=== PATIENT | female | born 2000 | race African-American/Black ===

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

== ENCOUNTER 2020-09-13 09:09 | Emergency (ER) | payer MEDICAID ==
[~2020-09-13] VITALS: Ht 160 cm; Wt 60.0 kg
[2020-09-13] MEDS ORDERED: DIPHENHYDRAMINE 50 MG/ML, 1ML ONE (09:52)
[2020-09-13] MEDS ORDERED: MORPHINE SULFATE 4 MG/ML, 1ML ONE (09:52)
[2020-09-13] MEDS ORDERED: METOCLOPRAMIDE 5 MG/ML, 2ML ONE (09:52)
[2020-09-13] MEDS ORDERED: PLEASE ENTER HEIGHT AND WEIGHT MC SCH (10:00)
[2020-09-13] MEDS ORDERED: DIPHENHYDRAMINE 50 MG/ML, 1ML IVPush ONE (10:00)
[2020-09-13] MEDS ORDERED: METOCLOPRAMIDE 5 MG/ML, 2ML IVPush ONE (10:00)
[2020-09-13] MEDS ORDERED: MORPHINE SULFATE 4 MG/ML, 1ML IVPush PRN (10:00)
--- NOTE | 2020-09-13 10:13 | NUR ---
PT CAME IN CO OF RUQ ABD PAIN X 2-3 DAYS. WAS SEEN AT [facility] FOR SAME. "THEY GAVE ME ZOFRAN WHICH HELPED BUT THE PAIN IS BACK". PT ADMITS TO SMOKING [place]IJUA[place]. PT RESITNG IN [facility]. LABS DRAWN. MEDICATED PER DEC. PT REPORTS PAIN IMPROVEMENT. WARM BLANKETS PROVIDED.
[2020-09-13 10:22] LABS: BASOPHILS % (AUTO) 1 % (0-1); EOSINOPHILS % (AUTO) 0 % (1-7); LYMPHOCYTES % (AUTO) 20 % (22-44); MEAN CORPUSCULAR HEMOGLOBIN 28.5 pg (27.0-34.8); MEAN CORPUSCULAR HGB CONC 33.2 g/dL (32.4-35.8); MEAN PLATELET VOLUME 10.2 fL (7.4-10.4); MONOCYTES % (AUTO) 4 % (2-9); NEUTROPHILS % (AUTO) 75 % (42-75); PLATELET COUNT 169 x10^3/uL (130-400); RED BLOOD COUNT 5.03 x10^6/uL (3.82-5.3); RED CELL DISTRIBUTION WIDTH 13.1 % (9.6-15.2)
[2020-09-13 10:23] LABS: MD NO
[2020-09-13 10:31] LABS: ALANINE AMINOTRANSFERASE 32 U/L (12-78); ALBUMIN 4.6 g/dL (3.4-5.0); ANION GAP 12 mmol/L (5-15); CALCIUM 9.8 mg/dL (8.5-10.1); CHLORIDE 109 mmol/L (98-107); CREATININE 1.17 mg/dL (0.55-1.02)
[2020-09-13 10:36] LABS: ALKALINE PHOSPHATASE 64 U/L (45-117); BILIRUBIN,TOTAL 0.4 mg/dL (0.2-1.0); TOTAL PROTEIN 8.8 g/dL (6.4-8.2)
--- NOTE | 2020-09-13 11:16 | NUR ---
PT RESTING IN [facility]. VSS. NAD
[2020-09-13] MEDS ORDERED: SODIUM CHLORIDE 0.9% 1,000ML IVBOLUS ONE (11:30)
[2020-09-13 12:03] VITALS: BP 118/97
== END 2020-09-13 12:24 | disposition home or self-care (01) ==
LOC: ED 11:32
DX: R10.11 Right upper quadrant pain (principal); R11.2 Nausea with vomiting, unspecified; E86.0 Dehydration; N28.9 Disorder of kidney and ureter, unspecified
CPT/HCPCS: 36415; 76700; 80053; 83690; 84703; 85025; 96374; 96375; 99284; J1200; J2270; J2765; J7030

== ENCOUNTER 2020-10-23 07:24 | Emergency (ER) | payer MEDICAID ==
[~2020-10-23] VITALS: Ht 157.5 cm; Wt 62.0 kg
--- NOTE | 2020-10-23 07:37 | NUR ---
PT IS A 20F BIB EMS COMPLAINING OF ABD PAIN X 3 DAYS WITH VOMITING TODAY. PROVIDER AT BEDSIDE FOR EVAL. CYCLING VITALS AND CONTINUOUS SPO2. CALL LIGHT WITHIN REACH. WARM BLANKET PROVIDED.
[2020-10-23] MEDS ORDERED: ONDANSETRON ODT 4 MG ONE (07:47)
[2020-10-23] MEDS ORDERED: HYDROmorphone 1 MG/ML, 1ML INJ ONE (07:48)
[2020-10-23] MEDS ORDERED: SODIUM CHLORIDE FLUSH 10ML SYR IVF ONE (08:00)
[2020-10-23] MEDS ORDERED: ONDANSETRON 2MG/ML, 2ML IVPush ONE (08:00)
[2020-10-23] MEDS ORDERED: HYDROmorphone 1 MG/ML, 1ML INJ IVPush PRN (08:00)
--- NOTE | 2020-10-23 08:23 | NUR ---
PATIENT MEDICATED PER EMAR RESTING COMFORTABLY TALKING ON HER CELL PHONE. CALL LIGHT WITHIN REACH. LAB AND URINE SENT
[2020-10-23 08:34] LABS: MICROSCOPIC AUTO
[2020-10-23 08:40] LABS: BASOPHILS % (AUTO) 0 % (0-1); EOSINOPHILS % (AUTO) 0 % (1-7); LYMPHOCYTES % (AUTO) 7 % (22-44); MEAN CORPUSCULAR HGB CONC 32.6 g/dL (32.4-35.8); MEAN PLATELET VOLUME 10.4 fL (7.4-10.4); MONOCYTES % (AUTO) 3 % (2-9); NEUTROPHILS % (AUTO) 89 % (42-75); PLATELET COUNT 152 x10^3/uL (130-400); RED CELL DISTRIBUTION WIDTH 13.4 % (9.6-15.2)
[2020-10-23 08:41] LABS: MD NO
[2020-10-23 08:44] LABS: ALANINE AMINOTRANSFERASE 18 U/L (12-78); ALBUMIN 3.8 g/dL (3.4-5.0); ANION GAP 9 mmol/L (5-15); CALCIUM 9.1 mg/dL (8.5-10.1); CHLORIDE 110 mmol/L (98-107); CREATININE 0.92 mg/dL (0.55-1.02)
[2020-10-23 08:49] LABS: ALKALINE PHOSPHATASE 59 U/L (45-117); BILIRUBIN,TOTAL 0.6 mg/dL (0.2-1.0); TOTAL PROTEIN 7.5 g/dL (6.4-8.2)
[2020-10-23 09:12] VITALS: BP 111/60
== END 2020-10-23 09:25 | disposition home or self-care (01) ==
LOC: ED 08:33
DX: N39.0 Urinary tract infection, site not specified (principal); R11.2 Nausea with vomiting, unspecified
CPT/HCPCS: 36415; 80053; 81001; 83690; 84703; 85025; 87086; 96374; 96375; 99284; J1170; J2405

== ENCOUNTER 2020-10-25 01:56 | Inpatient (IN) | payer MEDICAID ==
[~2020-10-25] VITALS: Ht 157.5 cm; Wt 64.0 kg
--- NOTE | 2020-10-25 02:04 | NUR ---
pt chinmay escalante, says she was seen here two days ago, and still has the nausea and vomiting, and it looks green and liquidy. MD to bedside to missael craig, and she is on cr monitor, in bed with side rails up x2 and call light within reach
--- NOTE | 2020-10-25 02:20 | NUR ---
PIV STARTED to left wrist, x1 attempt. 18 g cath, positive blood return, and blood sent to labs. 1000 ml NS started to run open. pt a&ox4, no distress, and texting on phone. side rails up x2 and call light within reach. on cr monitor.
[2020-10-25] MEDS ORDERED: METOCLOPRAMIDE 5 MG/ML, 2ML ONE (02:23)
[2020-10-25] MEDS ORDERED: PROMETHAZINE 25 MG/ML, 1ML ONE (02:23)
[2020-10-25] MEDS ORDERED: MORPHINE SULFATE 4 MG/ML, 1ML ONE (02:24)
[2020-10-25] MEDS ORDERED: MORPHINE SULFATE 4 MG/ML, 1ML IVPush PRN (02:30)
[2020-10-25] MEDS ORDERED: METOCLOPRAMIDE 5 MG/ML, 2ML IVPush ONE (02:30)
[2020-10-25] MEDS ORDERED: PROMETHAZINE 25 MG/ML, 1ML IM ONE (02:30)
[2020-10-25] MEDS ORDERED: SODIUM CHLORIDE FLUSH 10ML SYR IVF ONE (02:30)
[2020-10-25] MEDS ORDERED: SODIUM CHLORIDE 0.9% 1,000ML IVBOLUS ONE (02:30)
--- NOTE | 2020-10-25 02:38 | NUR ---
pt to ct with tech, in no acute distress at this time. meds given per emar.
[2020-10-25 02:43] LABS: BASOPHILS % (AUTO) 0 % (0-1); EOSINOPHILS % (AUTO) 0 % (1-7); LYMPHOCYTES % (AUTO) 5 % (22-44); MEAN CORPUSCULAR HEMOGLOBIN 28.4 pg (27.0-34.8); MEAN CORPUSCULAR HGB CONC 33.3 g/dL (32.4-35.8); MEAN PLATELET VOLUME 10.5 fL (7.4-10.4); MONOCYTES % (AUTO) 4 % (2-9); NEUTROPHILS % (AUTO) 90 % (42-75); PLATELET COUNT 148 x10^3/uL (130-400); RED BLOOD COUNT 4.42 x10^6/uL (3.82-5.3); RED CELL DISTRIBUTION WIDTH 13.8 % (9.6-15.2)
[2020-10-25 02:47] LABS: MD NO
[2020-10-25 02:48] LABS: ALANINE AMINOTRANSFERASE 15 U/L (12-78); ALBUMIN 3.2 g/dL (3.4-5.0); ANION GAP 14 mmol/L (5-15); CALCIUM 9.1 mg/dL (8.5-10.1); CHLORIDE 102 mmol/L (98-107); CREATININE 1.07 mg/dL (0.55-1.02)
[2020-10-25 02:53] LABS: ALKALINE PHOSPHATASE 84 U/L (45-117); BILIRUBIN,TOTAL 0.5 mg/dL (0.2-1.0)
--- NOTE | 2020-10-25 03:10 | NUR ---
pt back from pa. ua clean catch collected and sent to lab.
[2020-10-25 03:24] LABS: MICROSCOPIC AUTO
[2020-10-25] MEDS ORDERED: PIPERACILLIN/TAZO/PMX 3.375GM 50 ML IV ONE (03:30)
[2020-10-25] MEDS ORDERED: BUPIVACAINE 0.25% INFIL ONE (03:30)
[2020-10-25] MEDS ORDERED: PIPERACILLIN/TAZO/PMX 3.375GM 50 ML ONE (03:33)
--- NOTE | 2020-10-25 04:26 | NUR ---
pt rapid swabbed for covid per OR request, as pt will go to OR in the morning.
--- NOTE | 2020-10-25 04:28 | NUR ---
pt advised of strict NPO orders and to not eat or drink anything.
[2020-10-25] MEDS ORDERED: CEFTRIAXONE PMX 1GM/50ML 50 ML IV ONE (04:30)
--- NOTE | 2020-10-25 05:18 | NUR ---
pt in no acute distress. sleeping in room on cr monitor. to go to OR in the morning on day shift. currently NPO and v/u with instructions. iv site intact.
[2020-10-25] MEDS ORDERED: OMNIPAQUE 350 MG/ML, 100ML BOTTLE ONE (05:46)
--- NOTE | 2020-10-25 06:55 | NUR ---
report and care given to dayshift RN
[2020-10-25] MEDS ORDERED: FENTANYL PF 100 MCG/2ML ONE (07:46)
[2020-10-25] MEDS ORDERED: NEOSTIGMINE 1 MG/ML, 10ML ONE (07:47)
[2020-10-25] MEDS ORDERED: MIDAZOLAM 1 MG/ML, 2ML ONE (07:47)
[2020-10-25] MEDS ORDERED: ROCURONIUM 10MG/ML,5ML ONE (07:47)
[2020-10-25] MEDS ORDERED: GLYCOPYRROLATE 0.2MG/1ML, 5ML ONE (07:47)
[2020-10-25] MEDS ORDERED: CEFAZOLIN 1,000 MG ONE (07:47)
[2020-10-25] MEDS ORDERED: ONDANSETRON 2MG/ML, 2ML ONE (07:47)
[2020-10-25] MEDS ORDERED: PROPOFOL 10 MG/ML, 20ML ONE (07:47)
[2020-10-25] MEDS ORDERED: SUCCINYLCHOLINE 20 MG/ML, 10ML ONE (07:47)
--- NOTE | 2020-10-25 07:53 | NUR ---
SPOKE TO NANCIE IN SURGERY. SURGERY SCHEDULED FOR 0900. SURGERY TEAM WILL BE DOWN BY 0830.
[2020-10-25] MEDS ORDERED: ONDANSETRON 2MG/ML, 2ML IVPush PRN (08:00)
[2020-10-25] MEDS ORDERED: MEPERIDINE/PF 25MG/0.5ML IVPush PRN (08:00)
[2020-10-25] MEDS ORDERED: KETOROLAC 30 MG/1 ML IVPush PRN (08:00)
[2020-10-25] MEDS ORDERED: OXYcodone 5 MG/5 ML ORAL.SOL UDC PO PRN (08:00)
[2020-10-25] MEDS ORDERED: HYDROcodone/APAP 7.5-325MG/15ML UDC PO PRN (08:00)
[2020-10-25] MEDS ORDERED: HYDROmorphone 1 MG/ML, 1ML INJ IVPush PRN (08:00)
[2020-10-25] MEDS ORDERED: PROMETHAZINE 25 MG/ML, 1ML IVPush PRN (08:00)
[2020-10-25] MEDS ORDERED: FENTANYL PF 100 MCG/2ML IV PRN (08:00)
[2020-10-25] MEDS ORDERED: EPINEPHRINE 1 MG/ML, 1ML ONE (08:34)
[2020-10-25] MEDS ORDERED: BUPIVACAINE/PF 0.5% ONE (08:34)
[2020-10-25] MEDS ORDERED: DEXAMETHASONE 4 MG/ML, 5ML ONE (08:55)
[2020-10-25] MEDS ORDERED: LIDOCAINE-MPF 2% ,5ML ONE (08:55)
[2020-10-25] MEDS ORDERED: BUPIVACAINE/PF-EPI 0.5% 1:200K INFIL ONE (09:22)
[2020-10-25] MEDS ORDERED: OXYcodone 5 MG/5 ML ORAL.SOL UDC ONE (10:12)
[2020-10-25 12:00] VITALS: BP 124/81
[2020-10-25] MEDS ORDERED: LORazepam 1MG TABLET PO PRN (12:30)
[2020-10-25] MEDS ORDERED: ACETAMINOPHEN 650 MG SUPP PR PRN (12:30)
[2020-10-25] MEDS ORDERED: ENTER SLIDING SCALE INSULIN IF ORDERED XX PRN (12:30)
[2020-10-25] MEDS ORDERED: ACETAMINOPHEN 325 MG TABLET PO PRN (12:30)
[2020-10-25] MEDS ORDERED: HYDROcodone/APAP 5/325 TABLET PO PRN (12:30)
[2020-10-25] MEDS ORDERED: ONDANSETRON 2MG/ML, 2ML IV PRN (12:30)
[2020-10-25] MEDS ORDERED: DIPHENHYDRAMINE 50 MG/ML, 1ML IV PRN (12:30)
[2020-10-25] MEDS ORDERED: DIPHENHYDRAMINE 25 MG CAPSULE PO PRN (12:30)
[2020-10-25] MEDS ORDERED: KETOROLAC 30 MG/1 ML IV PRN (12:30)
[2020-10-25 12:44] LABS: BASOPHILS % (AUTO) 0 % (0-1); EOSINOPHILS % (AUTO) 0 % (1-7); LYMPHOCYTES % (AUTO) 4 % (22-44); MEAN CORPUSCULAR HEMOGLOBIN 28.3 pg (27.0-34.8); MEAN CORPUSCULAR HGB CONC 33.1 g/dL (32.4-35.8); MEAN PLATELET VOLUME 10.2 fL (7.4-10.4); MONOCYTES % (AUTO) 2 % (2-9); NEUTROPHILS % (AUTO) 94 % (42-75); PLATELET COUNT 141 x10^3/uL (130-400); RED CELL DISTRIBUTION WIDTH 13.7 % (9.6-15.2)
[2020-10-25 12:54] LABS: ANION GAP 7 mmol/L (5-15); CALCIUM 8.4 mg/dL (8.5-10.1); CHLORIDE 110 mmol/L (98-107); CREATININE 0.93 mg/dL (0.55-1.02)
[2020-10-25 12:57] LABS: MD SCAN
[2020-10-25] MEDS: POTASSIUM CHLORIDE 20 MEQ in D5%-0.45% NACL 1,000 ML IV SCH ×2 (13:28→23:11)
[2020-10-25] MEDS: PIPERACILLIN/TAZO/PMX 3.375GM 50 ML IV SCH ×2 (13:28→19:51)
[2020-10-25] MEDS ORDERED: ENOXAPARIN 40 MG/0.4 ML SQ SCH (14:00)
[2020-10-25 19:43] VITALS: BP 124/79
[2020-10-25] MEDS: SODIUM CHLORIDE FLUSH 10ML SYR IVF SCH (21:00)
[2020-10-25] MEDS: morphine SULFATE 10 MG/ML, 1ML IV PRN (23:51)
[2020-10-26 01:20] VITALS: BP 143/91
[2020-10-26] MEDS: PIPERACILLIN/TAZO/PMX 3.375GM 50 ML IV SCH ×2 (01:27→07:41)
[2020-10-26] MEDS: morphine SULFATE 10 MG/ML, 1ML IV PRN (02:40)
[2020-10-26 04:54] VITALS: BP 124/77
[2020-10-26 06:29] LABS: ANION GAP 4 mmol/L (5-15); CALCIUM 8.8 mg/dL (8.5-10.1); CHLORIDE 111 mmol/L (98-107)
[2020-10-26 06:31] LABS: BASOPHILS % (AUTO) 0 % (0-1); CREATININE 0.99 mg/dL (0.55-1.02); EOSINOPHILS % (AUTO) 0 % (1-7); LYMPHOCYTES % (AUTO) 12 % (22-44); MEAN CORPUSCULAR HEMOGLOBIN 28.2 pg (27.0-34.8); MEAN CORPUSCULAR HGB CONC 32.8 g/dL (32.4-35.8); MEAN PLATELET VOLUME 10.3 fL (7.4-10.4); MONOCYTES % (AUTO) 7 % (2-9); NEUTROPHILS % (AUTO) 82 % (42-75); PLATELET COUNT 146 x10^3/uL (130-400); RED BLOOD COUNT 3.83 x10^6/uL (3.82-5.3); RED CELL DISTRIBUTION WIDTH 13.7 % (9.6-15.2)
[2020-10-26 06:46] LABS: MD NO
[2020-10-26] MEDS: POTASSIUM CHLORIDE 20 MEQ in D5%-0.45% NACL 1,000 ML IV SCH (07:41)
[2020-10-26] MEDS: SODIUM CHLORIDE FLUSH 10ML SYR IVF SCH (07:41)
[2020-10-26 08:20] VITALS: BP 142/90
[2020-10-26] MEDS ORDERED: TRAM50TA2 PO (12:07)
[2020-10-26] MEDS ORDERED: DOCU-131 PO (12:07)
[2020-10-26] MEDS ORDERED: ONDA4TAB7 PO (12:08)
== END 2020-10-26 12:45 | disposition home or self-care (01) | DRG 342 ==
LOC: ED 02:26 → 4NE 10:48 → ED 18:49 → DCLOUNGE 10-26 12:40
PROVIDERS: ADMIT Surgery; ATTEND Surgery
PROC: 0DTJ4ZZ Resection of Appendix, Percutaneous Endoscopic Approach (ICD-10-PCS; principal; 2020-10-25 09:30)
DX: K35.30 Acute appendicitis with localized peritonitis, without perforation or gangrene (principal); N30.00 Acute cystitis without hematuria; D72.829 Elevated white blood cell count, unspecified; Z20.822 Contact with and (suspected) exposure to COVID-19
CPT/HCPCS: 36415; S0020; 74177; 80048; 80053; 81001; 83690; 84703; 85025; 87086; 87635; 88304; 96361; 96365; 96366; 96372; 96375; 99285; G0378; J0171; J0690; J0696; J1100; J1650; J2250; J2405; J2543; J2550; J2704; J2710; J3010; J3480; Q9967; J0330; J1200; J2270; J2765; J7030

== ENCOUNTER 2020-10-27 04:00 | Emergency (ER) | payer MEDICAID ==
[~2020-10-27] VITALS: Ht 157.5 cm; Wt 62.0 kg
[~2020-10-27 04:00] MED LIST: DOCU-131 PO; ONDA4TAB7 PO; TRAM50TA2 PO
[2020-10-27] MEDS ORDERED: ONDANSETRON 2MG/ML, 2ML IVPush ONE (04:30)
[2020-10-27] MEDS ORDERED: MORPHINE SULFATE 4 MG/ML, 1ML IVPush PRN (04:30)
[2020-10-27] MEDS ORDERED: PROMETHAZINE 25 MG/ML, 1ML IM ONE (04:30)
[2020-10-27] MEDS ORDERED: SODIUM CHLORIDE FLUSH 10ML SYR IVF ONE (04:30)
[2020-10-27] MEDS ORDERED: SODIUM CHLORIDE 0.9% 1,000ML IVBOLUS ONE (04:30)
[2020-10-27 04:50] LABS: MICROSCOPIC AUTO
[2020-10-27 05:02] LABS: BASOPHILS % (AUTO) 1 % (0-1); EOSINOPHILS % (AUTO) 0 % (1-7); LYMPHOCYTES % (AUTO) 21 % (22-44); MEAN CORPUSCULAR HEMOGLOBIN 28.5 pg (27.0-34.8); MEAN CORPUSCULAR HGB CONC 33.3 g/dL (32.4-35.8); MEAN PLATELET VOLUME 9.8 fL (7.4-10.4); MONOCYTES % (AUTO) 6 % (2-9); NEUTROPHILS % (AUTO) 72 % (42-75); PLATELET COUNT 171 x10^3/uL (130-400); RED BLOOD COUNT 4.13 x10^6/uL (3.82-5.3); RED CELL DISTRIBUTION WIDTH 13.4 % (9.6-15.2)
[2020-10-27 05:05] LABS: ALANINE AMINOTRANSFERASE 16 U/L (12-78); ANION GAP 7 mmol/L (5-15); CALCIUM 8.3 mg/dL (8.5-10.1); CHLORIDE 109 mmol/L (98-107); MD NO
[2020-10-27 05:08] LABS: ALKALINE PHOSPHATASE 59 U/L (45-117); BILIRUBIN,TOTAL 0.2 mg/dL (0.2-1.0); TOTAL PROTEIN 6.8 g/dL (6.4-8.2)
--- NOTE | 2020-10-27 05:28 | NUR ---
Pt resting calmly in bed. Pt denies the needs for pain and nausea meds. Pt instructed to let nurse know if and when she needs medicine. Will monitor.
[2020-10-27] MEDS ORDERED: ONDANSETRON 2MG/ML, 2ML ONE (06:26)
[2020-10-27] MEDS ORDERED: MORPHINE SULFATE 4 MG/ML, 1ML ONE ×2 (06:26→07:18)
--- NOTE | 2020-10-27 06:37 | NUR ---
Pt up to the BR, when she came back she states she feels horrible, having abd pain and nausea. Pt medicated with morphine and zofran. Pt states she does not want the IM phenergan at this time. Pt feeling slightly better after medication. Pillow given. Pt on monitor.
[2020-10-27 07:15] VITALS: BP 137/99
== END 2020-10-27 07:37 | disposition home or self-care (01) ==
LOC: ED 06:32
DX: R10.84 Generalized abdominal pain (principal); R11.2 Nausea with vomiting, unspecified; Z90.49 Acquired absence of other specified parts of digestive tract
CPT/HCPCS: 36415; 80053; 81001; 81025; 83690; 85025; 96361; 96374; 96375; 99284; J2270; J2405; J7030

== ENCOUNTER 2021-01-19 23:15 | Emergency (ER) | payer MEDICAID ==
[~2021-01-19] VITALS: Ht 157.5 cm; Wt 61.3 kg
[2021-01-19 23:20] VITALS: BP 112/62
[2021-01-19] MEDS ORDERED: CEFTRIAXONE 1,000 MG ONE (23:40)
[2021-01-19] MEDS ORDERED: AZITHROMYCIN 500 MG TABLET ONE ×2 (23:40)
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
[2021-01-20] MEDS ORDERED: AZITHROMYCIN 500 MG TABLET PO ONE
[2021-01-20] MEDS ORDERED: CEFTRIAXONE 1,000 MG IM ONE
== END 2021-01-20 01:45 | disposition home or self-care (01) ==
LOC: ED 23:48
DX: M25.531 Pain in right wrist (principal); Z90.89 Acquired absence of other organs
CPT/HCPCS: 73110; 87491; 87591; 96372; 99284; J0696; 99283